=== PATIENT | female | born 1965 | race Two or more races ===

== ENCOUNTER 2022-11-10 15:34 | Outpatient (REF) | payer MEDICAID, OTHER, SELFPAY ==
--- NOTE | ~2022-11-10 | XR_ITS ---
EXAMINATION: XR FOOT, LEFT CLINICAL INFORMATION: Pain status-post injury; question foreign body. COMPARISON: None available. TECHNIQUE: AP, lateral, and oblique views of the left foot. FINDINGS: Bony alignment and mineralization are normal. There is no fracture, dislocation or left ankle joint effusion. Boehler's angle is normal. There are large posterior and plantar calcaneal spurs. There is minimal bunion and bunionette formation. No focal soft tissue swelling, gas or foreign body is seen. XR/XR foot LT min 3V IMPRESSION: Unremarkable left foot. No radiopaque foreign body is seen.
== END 2022-11-10 15:35 | disposition home or self-care (01) ==
LOC: HO.HHCX 15:34
PROVIDERS: Visit Provider Student in an Organized Health Care Education/Training Program
DX: M79.672 Pain in left foot (principal)
CPT/HCPCS: 73630